=== PATIENT | male | born 1955 | race American Indian/Alaskan Native ===

== ENCOUNTER 2016-08-11 01:11 | Emergency (ER) | payer SELFPAY ==
[2016-08-11] MEDS ORDERED: ANTIVERT PO ONE (02:29)
[2016-08-11 03:11] LABS: Basophils % (Auto) 0.9 % (0.0-1.8); Eosinophils % (Auto) 1.5 % (0.0-4.3); Hematocrit 48.7 % (35.5-45.6); Hemoglobin 16.4 gm/dl (11.8-15.2); Mean Corpuscular HGB Conc 34 % (32-34); Mean Corpuscular Hemoglobin 28 pg (28-32); Mean Corpuscular Volume 82 fl (84-94); Platelet Count 170 K/mm3 (140-440); Red Blood Count 5.94 M/mm3 (3.65-5.03); Red Cell Distribution Width 16.8 % (13.2-15.2)
--- NOTE | 2016-08-11 03:53 | Emergency Department Report ---
HPI - General Chief Complaint: Dizziness Time Seen by Provider: 08/11/16 01:53 - HPI HPI: This is a 61-year-old Afro-[place] male presents emergency Department with the complaint of waking up earlier today feeling sweaty, and dizzy. The dizziness is more of a room spinning/vertigo sensation. It worsens with standing and certain movements. Patient says he has had these symptoms before and when I asked what he was diagnosed with he says "seasickness." It is associated with some nausea without vomiting. He denies any vision change, shortness of breath , chest pain, headache. He did not take anything for symptoms prior to presentation. His primary care doctor is a Dr. Andrade Landrum. He has a past medical history of hypertension, elevated cholesterol. No recent travel or sick contacts at home. ED Past Medical Hx - Past Medical History Previous Medical History?: Yes Hx Hypertension: Yes Additional medical history: Elevated cholesterol, on [id number] medicines - Surgical History Past Surgical History?: No - Social History Smoking Status: Never Smoker Substance Use Type: None - Medications Home Medications: Home Medications Medication Instructions Recorded Confirmed Last Taken Type Lisinopril [Zestril] 40 mg PO QDAY 11/27/13 08/11/16 11/25/13 History Potassium Chloride [K-Dur] 20 meq PO QDAY 11/27/13 08/11/16 11/25/13 History Triamter/Hctz 37.5-25 mg 1 tab PO QDAY 11/27/13 08/11/16 11/25/13 History [Maxzide-25] Metaxalone [Skelaxin] 800 mg PO TID PRN #21 tablet 11/25/15 08/11/16 Unknown Rx traMADol [Ultram] 50 mg PO Q6HR PRN #20 tablet 11/25/15 08/11/16 Unknown Rx Meclizine [Antivert] 25 mg PO TID PRN #20 tablet 08/11/16 Unknown Rx ED Review of Systems ROS: Stated complaint: DIZZINESS Other details as noted in HPI Comment: All other systems reviewed and negative Constitutional: denies: chills, fever Eyes: denies: eye pain, eye discharge, vision change ENT: denies: ear pain, throat pain Respiratory: denies: cough, shortness of breath, wheezing Cardiovascular: denies: chest pain, palpitations Gastrointestinal: nausea. denies: vomiting Genitourinary: denies: urgency, dysuria Musculoskeletal: denies: back pain, joint swelling, arthralgia Skin: denies: rash, lesions Neurological: vertigo. denies: headache Physical Exam - Physical Exam Vital Signs: Vital Signs 08/11/16 08/11/16 08/11/16 01:15 02:24 02:25 Temperature 98.4 F 98.4 F Pulse Rate 86 85 Respiratory 18 20 18 Rate Blood Pressure 99/56 Blood Pressure 97/55 [Left] O2 Sat by Pulse 94 99 99 Oximetry Physical Exam: GENERAL: The patient is well-developed well-nourished. HEENT: Normocephalic. Atraumatic. Extraocular motions are intact. Patient has moist mucous membranes. Pupils equal reactive to light bilaterally. No nystagmus. NECK: Supple. Trachea is midline. CHEST/LUNGS: Clear to auscultation. There is no respiratory distress noted. HEART/CARDIOVASCULAR: Regular. There is no tachycardia. There is no gallop rub or murmur. ABDOMEN: Abdomen is soft, nontender. Patient has normal bowel sounds. There is no abdominal distention. SKIN: Skin is warm and dry. NEURO: The patient is awake, alert, and oriented. The patient is cooperative. The patient has no focal neurologic deficits. The patient has normal speech. Cranial nerves II through XII grossly intact. MUSCULOSKELETAL: There is no tenderness or deformity. There is no limitation range of motion. There is no evidence of acute injury. ED Course Vital Signs 08/11/16 08/11/16 08/11/16 01:15 02:24 02:25 Temperature 98.4 F 98.4 F Pulse Rate 86 85 Respiratory 18 20 18 Rate Blood Pressure 99/56 Blood Pressure 97/55 [Left] O2 Sat by Pulse 94 99 99 Oximetry ED Medical Decision Making - Lab Data Result diagrams: 08/11/16 02:54 08/11/16 02:54 - EKG Data -: EKG Interpreted by Me EKG shows normal: sinus rhythm (PACs), axis (left axis deviation), intervals ( left anterior fascicular block), QRS complexes (Q waves to the inferior leads), ST-T waves (T-wave inversions to the lateral leads) Rate: normal - EKG Data When compared to previous EKG there are: no significant change Interpretation: unchanged when compared t (11/27/13) - Medical Decision Making 61-year-old male presents the emergency department with complaint of some dizziness and/or vertigo-like symptoms. He denies any vision change, slurred speech, headache, chest pain. He was evaluated with physical exam, labs and EKG. On physical exam there is no obvious focal, motor or sensory deficits and his cranial nerves are intact. Normal sounding heart and lungs to auscultation. EKG does not show any ST elevation CT. It appears mostly unchanged from his previous visit in 2013 and the patient does not have any chest pain. Vital signs stable throughout his ED course including being afebrile. The patient has been using crutches lately for ambulation due to some chronic knee arthritic changes and some sciatica. We gave him some crutches here and with them he was able to ambulate around the emergency department without any instability. I requested that the patient had a CT scan of the head to rule out any underlying malignancy or etiology of his symptoms. However since the patient is not having any headache, neurological deficits, and is feeling improved, he has decided that he would rather not have a CT scan at this time. He has an appointment tomorrow with his primary care physician. He was given a referral for ENT physicians for possible vertigo. He will return to the ER if any worsening of symptoms or any acute distress. - Differential Diagnosis vertigo, orthostatic hypotension, vasovagal, hypothyroid, Critical Care Time: No Critical care attestation.: If time is entered above; I have spent that time in minutes in the direct care of this critically ill patient, excluding procedure time. ED Disposition Clinical Impression: Dizziness, Lightheaded, Vertigo Disposition: DC-01 TO HOME OR SELFCARE Is pt being admited?: No Condition: Stable Instructions: Dizziness (ED), Lightheadedness (ED), Vertigo (ED) Additional Instructions: Please follow-up with your primary care doctor in the next few days. I've given him a referral for an ENT physician, Dr. Jorge Noriega, to follow up regarding your vertigo-like symptoms. Return to the emergency department with any worsening of your symptoms or any acute distress. I have prescribed you some meclizine/Antivert to treat her dizziness and/or vertigo. This medication can be slightly sedating and therefore should not be taken prior to driving, working, being responsible for children and should not be mixed with alcohol. Prescriptions: Meclizine [Antivert] 25 mg PO TID PRN #20 tablet PRN Reason: Vertigo Referrals: PRIMARY CARE, [Primary Care Provider] - 3-5 Days LAWRENCE BUTT MD [Staff Physician] - 3-5 Days
[2016-08-11 04:30] LABS: Anion Gap 19 mmol/L; Blood Urea Nitrogen 16 mg/dL (9-20); Calcium 8.8 mg/dL (8.4-10.2); Carbon Dioxide 22 mmol/L (22-30); Chloride 99.6 mmol/L (98-107); Glucose 180 mg/dL (75-100); Potassium 3.6 mmol/L (3.6-5.0); Sodium 137 mmol/L (137-145)
[2016-08-11 05:51] VITALS: BP 121/67
== END 2016-08-11 06:15 | disposition home or self-care (01) ==
LOC: ED 01:11
DX: R42 Dizziness and giddiness (principal); I10 Essential (primary) hypertension; E78.00 Pure hypercholesterolemia, unspecified
CPT/HCPCS: 36415; 80048; 84443; 84484; 85025; 93005; 93010